=== PATIENT | female | born 1955 | race Caucasian/White ===

== ENCOUNTER 2018-08-09 14:13 | Inpatient (IN) | payer MEDICAID ==
[~2018-08-09 14:13] MED LIST: ATROPINE SULFATE INJ 1 MG/10 ML DISP.SYRIN IV ONE; EPINEPHRINE INJ 1 MG/10 ML DISP.SYRIN ONE; SODIUM BICARBONATE 8.4% INJ 50 MEQ/50 ML DISP.SYRIN ONE
[2018-08-09 14:52] LABS: ABSOLUTE BASOPHILS # (AUTO) 0.1 10^3/uL (0.0-0.2); ABSOLUTE EOSINOPHILS # (AUTO) 0.2 10^3/uL (0.0-0.6); ABSOLUTE LYMPHOCYTES (AUTO) 2.6 10^3/uL (0.5-4.7); ABSOLUTE MONOCYTES (AUTO) 0.8 10^3/uL (0.1-1.4); ABSOLUTE NEUT (AUTO) 5.7 10^3/uL (1.7-8.2); BASOPHILS % (AUTO) 0.6 % (0-2); EOSINOPHILS % (AUTO) 1.8 % (0-6); HEMATOCRIT 43.2 % (36.0-47.0); HEMOGLOBIN 14.8 g/dL (12.0-15.5); LYMPHOCYTES % (AUTO) 28.3 % (13-45); MEAN CORPUSCULAR HEMOGLOBIN 30.4 pg (27.0-33.4); MEAN CORPUSCULAR HGB CONC 34.2 g/dL (32.0-36.0); MEAN CORPUSCULAR VOLUME 89 fl (80-97); MONOCYTES % (AUTO) 8.6 % (3-13); PLATELET COUNT 246 10^3/uL (150-450); RED BLOOD COUNT 4.86 10^6/uL (3.72-5.28); RED CELL DISTRIBUTION WIDTH 13.2 % (11.5-14.0); SEGMENTED NEUTROPHILS % (AUTO) 60.7 % (42-78); TOTAL CELLS COUNTED % (AUTO) 100 %; WHITE BLOOD COUNT 9.3 10^3/uL (4.0-10.5)
[2018-08-09 14:53] LABS: VENOUS BLOOD BASE EXCESS 2.3 mmol/L; VENOUS BLOOD HCO3 31.9 mmol/L (20-32); VENOUS BLOOD PH 7.27 (7.30-7.42)
[2018-08-09 14:54] LABS: VENOUS BLOOD PCO2 71.6 mmHg (35-63)
[2018-08-09 14:59] LABS: INTERNATIONAL RATION (INR) 0.94
[2018-08-09 15:03] LABS: APPEARANCE,URINE SLIGHTLY-CLOUDY; BILIRUBIN,URINE NEGATIVE (NEGATIVE); COLOR,URINE YELLOW; GLUCOSE, URINE NEGATIVE (NEGATIVE); KETONES,URINE NEGATIVE (NEGATIVE); LEUKOCYTE ESTERASE,URINE NEGATIVE (NEGATIVE); NITRITE,URINE NEGATIVE (NEGATIVE); PROTEIN,URINE NEGATIVE (NEGATIVE); URINE SPECIFIC GRAVITY 1.025; UROBILINOGEN,URINE NEGATIVE mg/dL (<2.0)
[2018-08-09] MEDS ORDERED: NALOXONE HCL INJ/PF 0.4 MG/1 ML SDV IV ONE ×2 (15:10→15:20)
--- NOTE | 2018-08-09 15:10 | ER Document Report ---
ED General - General Chief Complaint: Altered Mental Status Stated Complaint: ALTERED MENTAL STATUS Time Seen by Provider: 08/09/18 14:25 - HPI Patient complains to provider of: Altered mental status Notes: Patient came for evaluation of altered mental status. According to EMS patient was found by family early this morning sleeping later throughout the day became difficult to arouse therefore called EMS. Patient has prescriptions for multiple medications that can cause time including hydrocodone Flexeril and lorazepam. According to EMS patient Flexeril bottle was missing 6 tablets. Upon my initial evaluation patient with a GCS of approximately 10. Patient will move all 4 extremities to painful stimuli she also opened her eyes to pain And constant principal sounds. Patient looks to be maintaining her airway respiratory rate is approximately 10-12 SPO2 was otherwise normal. No history of trauma last known well was night prior to arrival. Otherwise the family is currently at bedside A brief review of the patient's medical records available in [facility] was performed - Related Data Allergies/Adverse Reactions: No Known Allergies Allergy (Verified 08/09/18 15:13) Past Medical History - Social History Smoking Status: Unknown if Ever Smoked Family History: Reviewed & Not Pertinent Review of Systems - Review of Systems -: Yes ROS unobtainable due to patient's medical condition - Altered mental status Physical Exam - Vital signs Vitals: Temp 97.4 F 08/09/18 14:15 Interpretation: Hypotensive - General General appearance: Lethargic In distress: Mild - HEENT Head: Normocephalic, Atraumatic Eyes: Normal Pupils: PERRL - Respiratory Respiratory status: No respiratory distress Chest status: Nontender Breath sounds: Normal Chest palpation: Normal - Cardiovascular Rhythm: Regular Heart sounds: Normal auscultation Murmur: No - Abdominal Inspection: Normal Distension: No distension Bowel sounds: Normal Tenderness: Nontender Organomegaly: No organomegaly - Genitourinary External exam: Normal - Back Back: Normal, Nontender - Extremities General upper extremity: Normal inspection, Nontender, Normal color, Normal ROM , Normal temperature General lower extremity: Normal inspection, Nontender, Normal color, Normal ROM , Normal temperature, Normal weight bearing. No: Louise's sign - Neurological Neuro grossly intact: Yes Cognition: Normal Orientation: AAOx4 Foley Coma Scale Eye Opening: To Pain Flash Coma Scale Verbal: Inappropriate Flash Coma Scale Motor: Localizes to Pain Foley Coma Scale Total: 10 Speech: Normal Motor strength normal: LUE, RUE, LLE, RLE Sensory: Normal - Skin Skin Temperature: Warm Skin Moisture: Dry Skin Color: Normal Course - Re-evaluation Re-evalutation: 08/09/18 21:55 Is evaluation concern for possible overdose. Patient did have his CT chest x- ray performed. Upon return from the head CT patient's respirations have decreased to 8 before that time Narcan was given patient received 2 doses of 0.4 with improvement of her respiratory rate from 8-13. Initial laboratory studies did return showing hypercapnia. At this time family was available for further questioning states patient does have history of diabetes hypertension does take anxiety medications L for underlying possible fibromyalgia states patient was normal night prior states that the patient does have a history of losing her son around this time most time does have issues with depression states never has overdosed before. Multiple evaluations after Narcan showed improvement in the patient's GCS able to open her eyes spontaneously to voice follow simple commands moving all 4 extremities. Patient continued on BiPAP Laboratory studies did return showing opiates benzos and marijuana in the patient's system. EKG showed left bundle outpatient has negative troponin at this time. Chest x-ray concerning for left sided pneumonia Levaquin was added onto the anabolic regiment During monitoring the patient she did become tachycardic and significant hypotensive with decreased respirations. No dose of Narcan was given however this time patient did not respond decision made to go ahead and intubate the patient. Intubation was performed allowing placement of a central line. Patient blood pressure continues to not respond to bolusing of fluids therefore Levophed was started continue to be hypotensive therefore Jp-Synephrine was also initiated. Patient underwent a CTA of her chest and CT scan of her abdomen for further evaluation for possible source of infection evaluating the abdominal care for any signs of free fluid believe that the patient was coming all of a sudden sniffily hypertensive. This showed bilateral pneumonia right greater than left on my read with no PE. No signs of any intra-abdominal pathology except for sigmoid diverticulitis. Case was discussed with the hospitalist staff. We will admit the patient for diverticulitis pneumonia and sepsis. Do believe patient more likely overdosed and aspirated. I did consult with poison control recommended continue supportive treatment monitoring of electrolytes repeat EKGs for cardiac status. - Vital Signs Vital signs: Temp Pulse Resp BP Pulse Ox 95.7 F L 21 H 95/80 L 90 L 08/09/18 21:42 08/09/18 20:06 08/09/18 20:06 08/09/18 19:51 - Laboratory Result Diagrams: 08/09/18 13:50 08/09/18 15:28 Laboratory results interpreted by me: 08/09/18 08/09/18 08/09/18 14:28 15:28 15:28 Carbonic Acid ABG pH ABG pCO2 ABG HCO3 ABG Total CO2 VBG pH 7.27 L VBG pCO2 71.6 H* Glucose 138 H POC Glucose AST 58 H Alkaline Phosphatase 138 H Creatine Kinase Salicylates < 1.0 L Acetaminophen < 10 L 08/09/18 08/09/18 08/09/18 15:28 16:50 16:55 Carbonic Acid 1.54 H ABG pH 7.15 L* ABG pCO2 51.3 H ABG HCO3 17.5 L ABG Total CO2 19.0 L VBG pH VBG pCO2 Glucose POC Glucose 186 H AST Alkaline Phosphatase Creatine Kinase 2718 H Salicylates Acetaminophen Procedures - Central Line Right Internal jugular Central line pre-insertion: Sterile PPE donned, Chloraprep applied Central line lumen type: Triple Ultrasound guided: Yes CM at insertion site: 20 Line secured with sutures: Yes Central line post-insertion: Blood return from lumens, Biopatch applied, Sutured , Sterile dressing applied, Position confirmed w/ CXR Complications: No - Intubation Orotracheal Airway evaluation: Normal anatomy Mallampati Classification: Class 2 Medications: Etomidate, Succinylcholine Intubation method: Nasotracheal Blade size: 4 Equipment used: Glidescope ETT size: 8.0 ETT secured at: Teeth ETT secured at (cm): 22 Ventilator settings: SIMV Tidal volume: 500 FiO2: 100 Respirations: 14 Pressure support: 5 PEEP: 10 Post Intubation Xray: Yes Intubation Complications: No complications - Additional Procedures ABG Additional Procedures: ABG - Bedside ultrasound was used to perform ABG. Initially tried on the left radial however this was unsuccessful x2 I did attempt on the right radial with one attempt was able to use ultrasound to guide the art line in the place area was cleaned with alcohol and ChloraPrep suture and Biopatch was also placed no complications Critical Care Note - Critical Care Note Total time excluding time spent on procedures (mins): 86 Comments: Patient with an overdose aspiration pneumonia requiring initial management of BiPAP and then continue to respiratory distress requiring intubation and procedures to be performed. Time excludes all procedures Discharge - Discharge Clinical Impression: Hypotension Qualifiers: Hypotension type: other hypotension type Qualified Code(s): I95.89 - Other hypotension Pneumonia Qualifiers: Pneumonia type: aspiration pneumonia Aspiration pneumonia type: unspecified Laterality: left Drug overdose Qualifiers: Encounter type: initial encounter Injury intent: undetermined intent Qualified Code(s): T50.904A - Poisoning by unspecified drugs, medicaments and biological substances, undetermined, initial encounter Acute respiratory failure Qualifiers: Respiratory failure complication: hypoxia and hypercapnia Qualified Code(s): J96.01 - Acute respiratory failure with hypoxia; J96.02 - Acute respiratory failure with hypercapnia; J96.02 - Acute respiratory failure with hypercapnia; J96.02 - Acute respiratory failure with hypercapnia Diabetes Qualifiers: Diabetes mellitus type: type 1 Diabetes mellitus complication status: without complication Qualified Code(s): E10.9 - Type 1 diabetes mellitus without complications Depression Qualifiers: Depression Type: unspecified Qualified Code(s): F32.9 - Major depressive disorder, single episode, unspecified Altered mental status Qualifiers: Coma timing: unspecified coma timing Bilateral pneumonia Qualifiers: Pneumonia type: aspiration pneumonia Aspiration pneumonia type: due to regurgitated food Condition: Good Disposition: ADMITTED INPATIENT Admitting Provider: [facility] Admitted: ICU
[2018-08-09 15:17] LABS: URINE AMPHETAMINES SCREEN NEGATIVE; URINE BARBITURATES SCREEN NEGATIVE; URINE BENZODIAZEPINES SCREEN UNCONFIRMED POSITIVE; URINE COCAINE SCREEN NEGATIVE; URINE MARIJUANA (THC) SCREEN UNCONFIRMED POSITIVE; URINE METHADONE SCREEN NEGATIVE; URINE PHENCYCLIDINE SCREEN NEGATIVE
[2018-08-09] MEDS ORDERED: NALOXONE HCL INJ/PF 0.4 MG/1 ML SDV ONE (15:20)
[2018-08-09] MEDS ORDERED: SUCCINYLCHOLINE CHLORIDE INJ 200 MG/10 ML VIAL ONE (15:20)
--- NOTE | 2018-08-09 15:21 | RADIOLOGY REPORT (SQ) ---
EXAM DESCRIPTION: CT HEAD WITHOUT COMPLETED DATE/TIME: 08/09/2018 3:13 pm REASON FOR STUDY: ams COMPARISON: None. TECHNIQUE: Axial images acquired through the brain without intravenous contrast. Images reviewed wi th bone, brain and subdural windows. Additional sagittal and coronal reconstructions were generated. Images stored on PACS. All CT scanners at this facility use dose modulation, iterative reconstruction, and/or weight based d osing when appropriate to reduce radiation dose to as low as reasonably achievable (ALARA). [facility]: Dose Right [facility]: CareDose [facility]: Dose Right [facility]: Teradose 4D [facility]: [employer] RADIATION DOSE: CT Rad equipment meets quality standard of care and radiation dose reduction techniq ues were employed. CTDIvol: 53.2 mGy. DLP: 937 mGy-cm. mGy. LIMITATIONS: None. FINDINGS: VENTRICLES: Normal size and contour. CEREBRUM: No masses. No hemorrhage. No midline shift. No evidence for acute infarction. Normal gra y/white matter differentiation. No areas of low density in the white matter. CEREBELLUM: No masses. No hemorrhage. No alteration of density. No evidence for acute infarction. EXTRAAXIAL SPACES: No fluid collections. No masses. ORBITS AND GLOBE: No intra- or extraconal masses. Normal contour of globe without masses. CALVARIUM: No fracture. PARANASAL SINUSES: No fluid or mucosal thickening. SOFT TISSUES: No mass or hematoma. OTHER: No other significant finding. IMPRESSION: NORMAL BRAIN CT WITHOUT CONTRAST. EVIDENCE OF ACUTE STROKE: NO. COMMENT: Quality ID # [id number]: Final reports with documentation of one or more dose reduction techniques (e.g., Automated exposure control, adjustment of the mA and/or kV according to patient size, use of iterative reconstruction technique) TECHNICAL DOCUMENTATION: JOB ID: [id number] [employer]- All Rights Reserved Reading location - IP/workstation name: [email or web address]
--- NOTE | 2018-08-09 15:23 | RADIOLOGY REPORT (SQ) ---
EXAM DESCRIPTION: CHEST SINGLE VIEW COMPLETED DATE/TIME: 08/09/2018 3:16 pm REASON FOR STUDY: cxr COMPARISON: None. EXAM PARAMETERS: NUMBER OF VIEWS: One view. TECHNIQUE: Single frontal radiographic view of the chest acquired. RADIATION DOSE: NA LIMITATIONS: None. FINDINGS: LUNGS AND PLEURA: Segmental airspace disease in the left lower lobe. Small left pleural e ffusion. MEDIASTINUM AND HILAR STRUCTURES: Appropriate for technique. HEART AND VASCULAR STRUCTURES: Cardiomegaly. BONES: No acute findings. HARDWARE: None in the chest. OTHER: No other significant finding. IMPRESSION: Left lower lobe pneumonia. TECHNICAL DOCUMENTATION: JOB ID: [id number] [employer]- All Rights Reserved Reading location - IP/workstation name: [email or web address]
[2018-08-09] MEDS ORDERED: NORMAL SALINE 1000 ML 1,000 ML IV ONE ×2 (15:34→15:35)
[2018-08-09] MEDS ORDERED: LEVOFLOXACIN 500 MG/D5W RTU 500 MG/100 ML RTUPB IV ONE (15:35)
[2018-08-09] MEDS ORDERED: NALOXONE HCL INJ 2 MG/2 ML DISP.SYRIN IV ONE (15:45)
[2018-08-09 15:55] LABS: ALANINE AMINOTRANSFERASE 33 U/L (9-52); ALKALINE PHOSPHATASE 138 U/L (38-126); ANION GAP 7 (5-19); ASPARTATE AMINO TRANSFERASE 58 U/L (14-36); BILIRUBIN,DIRECT 0.2 mg/dL (0.0-0.4); BILIRUBIN,TOTAL 0.8 mg/dL (0.2-1.3); BLOOD UREA NITROGEN 19 mg/dL (7-20); CALCIUM 9.8 mg/dL (8.4-10.2); CARBON DIOXIDE 29 mmol/L (22-30); CHLORIDE 104 mmol/L (98-107); GLUCOSE 138 mg/dL (75-110); POTASSIUM 4.5 mmol/L (3.6-5.0); SODIUM 139.5 mmol/L (137-145); TOTAL PROTEIN 6.9 g/dL (6.3-8.2)
[2018-08-09] MEDS ORDERED: NALOXONE HCL INJ 2 MG/2 ML DISP.SYRIN ONE (16:04)
[2018-08-09] MEDS ORDERED: SUCCINYLCHOLINE CHLORIDE INJ 200 MG/10 ML VIAL IV ONE (16:05)
[2018-08-09] MEDS ORDERED: ETOMIDATE INJ/PF 20 MG/10 ML SDV IV ONE ×2 (16:05→16:11)
[2018-08-09] MEDS ORDERED: NOREPINEPHRINE BITARTRATE INJ/PF 4 MG/4 ML SDV IV ONE ×2 (16:17→20:06)
[2018-08-09 16:28] LABS: ACETAMINOPHEN < 10 ug/mL (10-30); SALICYLATE < 1.0 mg/dL (2.0-20.0)
[2018-08-09] MEDS: DEXTROSE 5%-WATER 250 ML with NOREPINEPHRINE BITARTRATE 4 MG IV PRN ×4 (16:31→21:53)
[2018-08-09] MEDS: NORMAL SALINE 1000 ML 1,000 ML IV PRN ×2 (16:33→17:35)
[2018-08-09 17:14] LABS: ARTERIAL BLOOD BASE EXCESS -11.6 mmol/L; ARTERIAL BLOOD H2CO3 1.54 mmol/L (1.05-1.35); ARTERIAL BLOOD HCO3 17.5 mmol/L (20-24); ARTERIAL BLOOD O2 SATURATION 95.1 % (94-98); ARTERIAL BLOOD PCO2 51.3 mmHg (35-45); ARTERIAL BLOOD PO2 95.9 mmHg (80-100)
[2018-08-09 17:15] LABS: ARTERIAL BLOOD FIO2 100%
[2018-08-09 17:16] LABS: ARTERIAL BLOOD PH 7.15 (7.35-7.45)
[2018-08-09] MEDS ORDERED: PHENYLEPHRINE HCL INJ/PF 10 MG/1 ML SDV ONE ×2 (17:20→20:58)
[2018-08-09] MEDS ORDERED: NORMAL SALINE 1000 ML 1,000 ML IV PRN (17:35)
[2018-08-09] MEDS ORDERED: LEVALBUTEROL HCL NEB 0.63 MG/3 ML AMPUL NEB PRN (17:35)
[2018-08-09] MEDS ORDERED: ONDANSETRON HCL INJ/PF 4 MG/2 ML SDV IV PRN (17:35)
[2018-08-09] MEDS: DEXTROSE 5%-WATER 250 ML with PHENYLEPHRINE HCL 40 MG IV PRN ×4 (17:38→21:51)
--- NOTE | 2018-08-09 17:45 | RADIOLOGY REPORT (SQ) ---
EXAM DESCRIPTION: CHEST SINGLE VIEW COMPLETED DATE/TIME: 08/09/2018 5:32 pm REASON FOR STUDY: Post intubation COMPARISON: Earlier the same day. NUMBER OF VIEWS: One view. TECHNIQUE: Single frontal radiographic image of the chest acquired. LIMITATIONS: None. FINDINGS: LUNGS AND PLEURA: Improved aeration left lower lobe. No pneumothorax. MEDIASTINUM AND HEART: Stable heart size and mediastinal structures. SUPPORT DEVICES: Nasogastric tube extends into the left upper quadrant. Right central line tip overl ies cavoatrial junction. Endotracheal tube tip between thoracic inlet and juanito. BONY STRUCTURES: No acute findings. HARDWARE: None. OTHER: No other significant finding. IMPRESSION: Appropriate position of support apparatus. No pneumothorax. Reading location - IP/workstation name: [email or web address]
[2018-08-09 17:47] LABS: LIPASE 72.8 U/L (23-300)
[2018-08-09] MEDS ORDERED: RINGERS SOLUTION,LACTATED 1,000 ML IV PRN (17:50)
[2018-08-09] MEDS ORDERED: DOBUTAMINE HCL/D5W 500 MG/250 ML RTUINJ IV PRN (17:51)
[2018-08-09] MEDS ORDERED: PHARMACY COMMUNICATION ORDER MC NR (18:00)
[2018-08-09] MEDS ORDERED: ERTAPENEM SODIUM INJ 1 GM VIAL IV SCH (18:00)
[2018-08-09] MEDS ORDERED: INSULIN REG, HUMAN 100 UNIT/ML 3 ML VIAL (PYX) SUBCUT PRN (18:09)
[2018-08-09] MEDS ORDERED: GLUCAGON,HUMAN RECOMB 1 MG INJ IM PRN (18:09)
[2018-08-09] MEDS ORDERED: DEXTROSE 40% GEL 15 GM TUBE PO PRN ×2 (18:09)
[2018-08-09] MEDS ORDERED: DEXTROSE 50%-WATER 25 GM/50 ML DISP.SYRIN IV PRN ×2 (18:09)
--- NOTE | 2018-08-09 18:11 | PDOC H&P ---
History of Present Illness Admission Date/PCP: FORREST MARIA MD Patient complains of: Altered mental status History of Present Illness: GM TREJO is a 63 year old female history of for diabetes mellitus hypertension COPD depression brought to the emergency room when the family is unable to wake her up this morning according to the daughter patient went to bed fine last night patient's tried to wake her up this morning unable to do so so he called his daughter she came to pick her up, she is unsuccessful so EMS was called. His room according to the ER physician patient was in altered mental status around 9 on arrival and in respiratory distress she was placed on BiPAP for hypercapnia and condition started getting deteriorated worsening of the PCO2 70 ahead and intubated the patient. When he gave him the report of the blood pressures reading 150/20. Started on Levophed. CT head was done in the ER negative for acute changes. Chest x-ray done Indicating left lower lobe pneumonia. Discussed the care with the family and the daughter daughter wants everything to be done. 1 of the family member said patient has living will at home. Hopefully we can get that living will. In the meantime will follow the doctor's wishes that he is a full code she wants everything to be done. In the emergency room urine drug screen positive for opiates she was given Narcan. He initially responded then she deteriorated again. Past Medical History Cardiac Medical History: Reports: Hypertension Endocrine Medical History: Reports: Diabetes Mellitus Type 2 Malignancy Medical History: Reports: Skin Cancer Psychiatric Medical History: Reports: Depression Past Surgical History Past Surgical History: Reports: None Social History Smoking Status: Current Every Day Smoker Frequency of Alcohol Use: Occasional Hx Recreational Drug Use: Yes Drugs: Marijuana Family History Parental Family History Reviewed: Yes Children Family History Reviewed: Yes Sibling(s) Family History Reviewed.: Yes Medication/Allergy Allergies/Adverse Reactions: No Known Allergies Allergy (Verified 08/09/18 15:13) Review of Systems Review of Systems: Patient was intubated. Unable to review the systems. Constitutional: PRESENT: as per HPI Ears: PRESENT: as per HPI Nose, Mouth, and Throat: PRESENT: as per HPI Breasts: PRESENT: as per HPI Cardiovascular: PRESENT: as per HPI Respiratory: PRESENT: as per HPI Gastrointestinal: PRESENT: as per HPI Musculoskeletal: PRESENT: as per HPI Integumentary: PRESENT: as per HPI Neurological: PRESENT: as per HPI Psychiatric: PRESENT: as per HPI Endocrine: PRESENT: as per HPI Physical Exam Vital Signs: Temp Pulse Resp BP Pulse Ox 97.4 F 13 97/71 L 94 08/09/18 14:15 08/09/18 15:30 08/09/18 15:30 08/09/18 15:30 Intake & Output 08/08/18 08/09/18 08/10/18 06:59 06:59 06:59 Weight 83.2 kg General appearance: PRESENT: other - Intubated not under sedation because of the low blood pressures. Head exam: PRESENT: atraumatic Eye exam: PRESENT: PERRLA Neck exam: ABSENT: carotid bruit, JVD, lymphadenopathy, thyromegaly Respiratory exam: PRESENT: other - Bilateral transmitted breath sounds. She was intubated. Cardiovascular exam: PRESENT: tachycardia GI/Abdominal exam: PRESENT: normal bowel sounds, soft, tenderness Neurological exam: PRESENT: other - Patient was intubated on she is not responsive. Psychiatric exam: PRESENT: other - Able to do the psychiatric examination. Results Laboratory Results: 08/09/18 13:50 08/09/18 15:28 08/09/18 08/09/18 08/09/18 13:50 14:28 14:28 WBC 9.3 RBC 4.86 Hgb 14.8 Hct 43.2 MCV 89 MCH 30.4 MCHC 34.2 RDW 13.2 Plt Count 246 Seg Neutrophils % 60.7 Lymphocytes % 28.3 Monocytes % 8.6 Eosinophils % 1.8 Basophils % 0.6 Absolute Neutrophils 5.7 Absolute Lymphocytes 2.6 Absolute Monocytes 0.8 Absolute Eosinophils 0.2 Absolute Basophils 0.1 Carbonic Acid HCO3/H2CO3 Ratio ABG pH ABG pCO2 ABG pO2 ABG HCO3 ABG O2 Saturation ABG Base Excess VBG pH 7.27 L VBG pCO2 71.6 H* VBG HCO3 31.9 VBG Base Excess 2.3 FiO2 Sodium Potassium Chloride Carbon Dioxide Anion Gap BUN Creatinine Est GFR ( Amer) Est GFR (Non-Af Amer) Glucose Lactic Acid 1.6 Calcium Magnesium Total Bilirubin AST ALT Alkaline Phosphatase Total Protein Albumin Urine Color Urine Appearance Urine pH Ur Specific [place] Urine Protein Urine Glucose (UA) Urine Ketones Urine Blood Urine Nitrite Ur Leukocyte Esterase Urine WBC (Auto) Urine RBC (Auto) 08/09/18 08/09/18 08/09/18 14:28 15:28 15:28 WBC RBC Hgb Hct MCV MCH MCHC RDW Plt Count Seg Neutrophils % Lymphocytes % Monocytes % Eosinophils % Basophils % Absolute Neutrophils Absolute Lymphocytes Absolute Monocytes Absolute Eosinophils Absolute Basophils Carbonic Acid HCO3/H2CO3 Ratio ABG pH ABG pCO2 ABG pO2 ABG HCO3 ABG O2 Saturation ABG Base Excess VBG pH VBG pCO2 VBG HCO3 VBG Base Excess FiO2 Sodium 139.5 Potassium 4.5 Chloride 104 Carbon Dioxide 29 Anion Gap 7 BUN 19 Creatinine 0.93 Est GFR ( Amer) > 60 Est GFR (Non-Af Amer) > 60 Glucose 138 H Lactic Acid Calcium 9.8 Magnesium 2.0 Total Bilirubin 0.8 AST 58 H ALT 33 Alkaline Phosphatase 138 H Total Protein 6.9 Albumin 4.0 Urine Color YELLOW Urine Appearance SLIGHTLY-CLOUDY Urine pH 5.0 Ur Specific [place] 1.025 Urine Protein NEGATIVE Urine Glucose (UA) NEGATIVE Urine Ketones NEGATIVE Urine Blood NEGATIVE Urine Nitrite NEGATIVE Ur Leukocyte Esterase NEGATIVE Urine WBC (Auto) 2 Urine RBC (Auto) 3 08/09/18 16:55 WBC RBC Hgb Hct MCV MCH MCHC RDW Plt Count Seg Neutrophils % Lymphocytes % Monocytes % Eosinophils % Basophils % Absolute Neutrophils Absolute Lymphocytes Absolute Monocytes Absolute Eosinophils Absolute Basophils Carbonic Acid 1.54 H HCO3/H2CO3 Ratio 11:1 ABG pH 7.15 L* ABG pCO2 51.3 H ABG pO2 95.9 ABG HCO3 17.5 L ABG O2 Saturation 95.1 ABG Base Excess -11.6 VBG pH VBG pCO2 VBG HCO3 VBG Base Excess FiO2 100% Sodium Potassium Chloride Carbon Dioxide Anion Gap BUN Creatinine Est GFR ( Amer) Est GFR (Non-Af Amer) Glucose Lactic Acid Calcium Magnesium Total Bilirubin AST ALT Alkaline Phosphatase Total Protein Albumin Urine Color Urine Appearance Urine pH Ur Specific [place] Urine Protein Urine Glucose (UA) Urine Ketones Urine Blood Urine Nitrite Ur Leukocyte Esterase Urine WBC (Auto) Urine RBC (Auto) 08/09/18 15:28 Troponin I < 0.012 Impressions: Chest X-Ray 08/09/18 14:25 IMPRESSION: Left lower lobe pneumonia. Head CT 08/09/18 14:25 IMPRESSION: NORMAL BRAIN CT WITHOUT CONTRAST. EVIDENCE OF ACUTE STROKE: NO. Assessment & Plan - Diagnosis (1) Acute respiratory failure Qualifiers: Respiratory failure complication: hypoxia and hypercapnia Qualified Code(s) : J96.01 - Acute respiratory failure with hypoxia; J96.02 - Acute respiratory failure with hypercapnia; J96.02 - Acute respiratory failure with hypercapnia; J96.02 - Acute respiratory failure with hypercapnia Is this a current diagnosis for this admission?: Yes Plan: 08/09/2018 status post intubation in the ER secondary to acute respiratory failure. She is going to be in the ICU as inpatient. Because of the low blood pressures that she was not on any sedatives. We will continue the present ventilator settings. Blood cultures pending. Cardiac enzymes were requested. Started on levofloxacin and Invanz. She was on IV fluids normal saline 100 cc/h , started on Levophed and dobutamine as per the protocol. She will be bed rest with NG tube placement and Egan's catheter. Once is stable we do the CT of the chest. Started on IV Solu-Medrol 125 mg every 8 hours. Xopenex nebulizations every 6 as needed was started. Consult was requested. Prognosis is poor condition is critical. (2) Altered mental status Qualifiers: Coma timing: unspecified coma timing Is this a current diagnosis for this admission?: Yes Plan: 08/09/2018 altered mental status may be secondary to drug overdose, acute respiratory failure with hypoxia and hypercapnia.. aspiration pneumonia is a possibility. We are going to do the ABGs twice a day to check the oxygen saturation. The head was negative. Checks were requested and is kept n.p.o.. (3) Hypotension Is this a current diagnosis for this admission?: Yes Plan: 08/09/2018 hypertension may be secondary to sepsis. Latest blood pressure is 65 /35 on Levophed. Started on IV fluids normal saline 100 cc/h and added dobutamine. (4) Pneumonia Qualifiers: Laterality: left Is this a current diagnosis for this admission?: Yes Plan: 08/09/2018-chest x-ray shows left lower lobe pneumonia. Started on levofloxacin and Invanz. Will try to get sputum cultures. Blood cultures and urine cultures are pending. may be patient is aspirated. (5) Diabetes 1.5, managed as type 2 Is this a current diagnosis for this admission?: Yes Plan: 08 09 2018-patient has history of diabetes mellitus. She is going to be n.p.o. I am going to put her on a low-dose of sliding scale. We will check hemoglobin A1c. (6) Drug overdose Is this a current diagnosis for this admission?: Yes Plan: 08/09/2018-Poison control was notified about the possibility of drug overdose. Urine drug screen positive for opiates. The recommendation is supportive measures. - Time Time Spent: Greater than 70 Minutes Critical Time spent with patient: 15-24 minutes Medications reviewed and adjusted accordingly: Yes
[2018-08-09] MEDS ORDERED: ALBUTEROL SULFATE 0.083% NEB 2.5 MG/3 ML AMPUL NEB PRN (18:13)
--- NOTE | 2018-08-09 18:20 | RADIOLOGY REPORT (SQ) ---
EXAM DESCRIPTION: KUB/ABDOMEN (SINGLE VIEW) COMPLETED DATE/TIME: 08/09/2018 6:06 pm REASON FOR STUDY: Check Placement of NG Tube COMPARISON: None. NUMBER OF VIEWS: One view. TECHNIQUE: Supine radiographic image of the upper abdomen acquired. LIMITATIONS: None. FINDINGS: BOWEL GAS PATTERN: No dilated bowel loops at the visualized upper abdomen. There is a mod erate amount of stool within the colon. CALCIFICATIONS: No suspicious calcifications. SOFT TISSUES: No gross mass or suggestion of organomegaly. HARDWARE: An enteric tube terminates at the left upper quadrant with the distal hole at the distal es ophagus. BONES: No acute findings. IMPRESSION: Enteric tube with the distal hole at the distal esophagus, advancement by approximately 7-10 cm recommended. TECHNICAL DOCUMENTATION: JOB ID: [id number] [email or web address]- All Rights Reserved Reading location - IP/workstation name: [email or web address]
[2018-08-09] MEDS ORDERED: METHYLPREDNISOLONE INJ 125 MG/2 ML SDV IV ONE (18:45)
--- NOTE | 2018-08-09 18:45 | RADIOLOGY REPORT (SQ) ---
EXAM DESCRIPTION: CTA CHEST COMPLETED DATE/TIME: 08/09/2018 6:29 pm REASON FOR STUDY: sepsis hypotension COMPARISON: None. TECHNIQUE: CT scan of the chest performed using helical scanning technique with dynamic intravenous contrast injection. Images reviewed with lung, soft tissue and bone windows. Reconstructed coronal and sagittal MPR images reviewed. Additional 3 dimensional post-processing performed to develop Maximal Intensity Projection images ([place] P). All images stored on PACS. All CT scanners at this facility use dose modulation, iterative reconstruction, and/or weight based d osing when appropriate to reduce radiation dose to as low as reasonably achievable (ALARA). [facility]: Dose Right [facility]: CareDose [facility]: Dose Right [facility]: Teradose 4D [facility]: Leostream CONTRAST TYPE AND DOSE: contrast/concentration: Isovue 350.00 mg/ml; Total Contrast Delivered: 76.0 ml; Total Saline Delivered: 110.0 ml Contrast bolus adequate for pulmonary arteries and aorta. RENAL FUNCTION: BUN 19 creatinine 0.9 RADIATION DOSE: CT Rad equipment meets quality standard of care and radiation dose reduction techniq ues were employed. CTDIvol: 28.4 - 34.7 mGy. DLP: 4501 mGy-cm. . LIMITATIONS: None. FINDINGS: LUNGS AND PLEURA: Appropriate position of endotracheal tube. Segmental consolidation supe rior segment right lower lobe. 10 mm nodule right lower lobe. Subsegmental consolidation in the cheryl gula. No large effusions. AORTA AND GREAT VESSELS: No aneurysm. No dissection. HEART: No pericardial effusion. Approximately 4.5 cm fat-density lesion in the right atrium. PULMONARY ARTERIES: No emboli visualized in the main pulmonary arteries or the segmental branches. HILAR AND MEDIASTINAL STRUCTURES: No identified masses or abnormal nodes. HARDWARE: None in the chest. UPPER ABDOMEN: See separate report of the CT of the abdomen. THYROID AND OTHER SOFT TISSUES: No masses. No adenopathy. BONES: Nothing acute. 3D MIPS: Confirm above findings. OTHER: Nasogastric tube. IMPRESSION: 1. No PE. 2. Bilateral pneumonia. 3. Right atrial lipoma. Correlate with echocardiography. COMMENT: Quality ID # 436: Final reports with documentation of one or more dose reduction techniques (e.g., Automated exposure control, adjustment of the mA and/or kV according to patient size, use of iterative reconstruction technique) TECHNICAL DOCUMENTATION: JOB ID: [id number] 0895[employer]- All Rights Reserved Reading location - IP/workstation name: [email or web address]
--- NOTE | 2018-08-09 18:49 | RADIOLOGY REPORT (SQ) ---
EXAM DESCRIPTION: CT ABD/PELVIS WITH IV ONLY COMPLETED DATE/TIME: 08/09/2018 6:29 pm REASON FOR STUDY: sepsis hypotension COMPARISON: None. TECHNIQUE: CT scan of the abdomen and pelvis performed using helical scanning technique with dynamic intravenous contrast injection. No oral contrast. Images reviewed with lung, soft tissue, and bone windows. Reconstructed coronal and sagittal MPR images reviewed. Delayed images for evaluation of the urinary system also acquired. All images stored on PACS. All CT scanners at this facility use dose modulation, iterative reconstruction, and/or weight based d osing when appropriate to reduce radiation dose to as low as reasonably achievable (ALARA). [facility]: Dose Right [facility]: CareDose [facility]: Dose Right [facility]: Teradose 4D [facility]: Smart [employer] CONTRAST TYPE AND DOSE: See separate report RENAL FUNCTION: See separate report. RADIATION DOSE: . LIMITATIONS: None. FINDINGS: LOWER CHEST: See separate report of the CT of the chest. LIVER: Normal size. No masses. No dilated ducts. SPLEEN: Normal size. No focal lesions. PANCREAS: No masses. No significant calcifications. No adjacent inflammation or peripancreatic fluid collections. Pancreatic duct not dilated. GALLBLADDER: No identified stones by CT criteria. No inflammatory changes to suggest cholecystitis. ADRENAL GLANDS: No significant masses or asymmetry. RIGHT KIDNEY AND URETER: No solid masses. No significant calcifications. No hydronephrosis or hyd roureter. LEFT KIDNEY AND URETER: No solid masses. No significant calcifications. No hydronephrosis or hydr oureter. AORTA AND VESSELS: No aneurysm. RETROPERITONEUM: No retroperitoneal adenopathy, hemorrhage or masses. BOWEL AND PERITONEAL CAVITY: Sigmoid diverticulosis. Subtle stranding of the mesenteric fat image 74 . No abscess. No ascites or free air. APPENDIX: Normal. PELVIS: Egan catheter in urinary bladder. ABDOMINAL WALL: No masses. No hernias. BONES: Nothing acute. OTHER: Nasogastric tube in the stomach. IMPRESSION: Sigmoid diverticulitis. TECHNICAL DOCUMENTATION: JOB ID: [id number] Quality ID # [id number]: Final reports with documentation of one or more dose reduction techniques (e.g., Au tomated exposure control, adjustment of the mA and/or kV according to patient size, use of iterative reconstruction technique) 2010 [employer]- All Rights Reserved Reading location - IP/workstation name: [email or web address]
[2018-08-09] MEDS ORDERED: VASOPRESSIN INJ 20 UNIT/1 ML VIAL ONE ×2 (19:35→20:00)
[2018-08-09 21:38] LABS: ARTERIAL BLOOD BASE EXCESS -17.7 mmol/L; ARTERIAL BLOOD FIO2 90%; ARTERIAL BLOOD H2CO3 1.06 mmol/L (1.05-1.35); ARTERIAL BLOOD HCO3 10.8 mmol/L (20-24); ARTERIAL BLOOD O2 SATURATION 98.1 % (94-98); ARTERIAL BLOOD PCO2 35.1 mmHg (35-45); ARTERIAL BLOOD PO2 146.6 mmHg (80-100); ARTERIAL BLOOD TOTAL CO2 11.9 mmol/L (21-25)
[2018-08-09 21:41] LABS: ARTERIAL BLOOD PH 7.11 (7.35-7.45)
[2018-08-09 21:53] LABS: CREATINE KINASE MB 31.1 ng/mL (<4.55)
[2018-08-09 21:59] LABS: TROPONIN I 1.92 ng/mL
[2018-08-09] MEDS ORDERED: PANTOPRAZOLE SODIUM 40 MG VIAL IV SCH (22:00)
[2018-08-09] MEDS ORDERED: DEXTROSE 5%-WATER 250 ML with VASOPRESSIN 100 UNIT IV PRN ×2 (22:29)
[2018-08-10] MEDS ORDERED: METHYLPREDNISOLONE INJ 125 MG/2 ML SDV IV SCH
[2018-08-10] MEDS ORDERED: PHENYLEPHRINE HCL INJ/PF 10 MG/1 ML SDV ONE (00:57)
--- NOTE | 2018-08-10 00:57 | EKG REPORT ---
SEVERITY:- ABNORMAL ECG - SINUS RHYTHM LEFT BUNDLE BRANCH BLOCK : Confirmed by: Heide Shipman MD 10-Aug-2018 00:56:36
--- NOTE | 2018-08-10 00:57 | EKG REPORT ---
SEVERITY:- ABNORMAL ECG - SINUS TACHYCARDIA WITH IRREGULAR RATE 70-139 LEFT BUNDLE BRANCH BLOCK : Confirmed by: Heide Shipman MD 10-Aug-2018 00:56:31
[2018-08-10] MEDS: DEXTROSE 5%-WATER 250 ML with PHENYLEPHRINE HCL 40 MG IV PRN ×2 (01:04)
[2018-08-10] MEDS ORDERED: ATROPINE SULFATE INJ 1 MG/10 ML DISP.SYRIN IV ONE (01:28)
[2018-08-10 01:41] LABS: ARTERIAL BLOOD BASE EXCESS -21.7 mmol/L; ARTERIAL BLOOD FIO2 100%; ARTERIAL BLOOD H2CO3 0.71 mmol/L (1.05-1.35); ARTERIAL BLOOD HCO3 6.8 mmol/L (20-24); ARTERIAL BLOOD O2 SATURATION 96.3 % (94-98); ARTERIAL BLOOD PCO2 23.7 mmHg (35-45); ARTERIAL BLOOD PO2 112.8 mmHg (80-100); ARTERIAL BLOOD TOTAL CO2 7.5 mmol/L (21-25)
[2018-08-10 01:42] LABS: ARTERIAL BLOOD PH 7.07 (7.35-7.45)
[2018-08-10] MEDS ORDERED: EPINEPHRINE INJ 1 MG/10 ML DISP.SYRIN ONE (01:43)
[2018-08-10] MEDS ORDERED: SODIUM BICARBONATE 8.4% INJ 50 MEQ/50 ML DISP.SYRIN ONE ×2 (01:43)
[2018-08-10] MEDS ORDERED: MORPHINE SULFATE 10 MG/ML INJ ONE (02:10)
[2018-08-10 03:35] VITALS: BP 67/34
--- NOTE | 2018-08-10 05:12 | Progress Note ---
Provider Note Provider Note: Critical care note: Critical care start time: 01:15 CODE BLUE: Patient was treated for cardiac arrest with severe with pulseless electrical activity alternating with pulse recovery. Patient was treated utilizing standard ACLS protocol. Chest compressions were performed while medications were being administered. After several doses of IV epinephrine she responded and a pulse was returned however shortly thereafter her pulse was no longer palpable and chest compressions were resumed as was standard ACLS protocol. Arterial blood gases were obtained during the interval when she had a pulse and were returned sometime later showing a pH of 7.07. During this portion of the resuscitation the patient was treated with IV push epinephrine and she was also given 150 mEq of sodium bicarbonate. Earlier she had received 1 mg of atropine. Her pulse again returned and she was started on an epinephrine drip. At this point her family came in to see her and after discussion about continuing the code they chose to discontinue aggressive resuscitative efforts. To this end the patient was continued on the medications that were currently running and the ventilator which she had been on prior to the beginning of the code. Her family had the opportunity to say goodbye to her and sometime later she succumbed. Critical care in time 01:57
[2018-08-10] MEDS ORDERED: LEVOFLOXACIN 750 MG/D5W RTU 750 MG/150 ML RTUPB IV SCH (10:00)
[2018-08-10] MEDS ORDERED: ENOXAPARIN SODIUM INJ 40 MG/0.4 ML DISP.SYRIN SUBCUT SCH (10:00)
--- NOTE | 2018-08-10 18:57 | Death Summary ---
Summary Date : 08/10/18 Time of :: 02:43 Autopsy: No Resuscitation Status: Full Code - Final Diagnosis (1) Acute respiratory failure Is this a current diagnosis for this admission?: Yes (2) Altered mental status Is this a current diagnosis for this admission?: Yes (3) Hypotension Is this a current diagnosis for this admission?: Yes (4) Pneumonia Is this a current diagnosis for this admission?: Yes (5) Diabetes 1.5, managed as type 2 Is this a current diagnosis for this admission?: Yes (6) Drug overdose Is this a current diagnosis for this admission?: Yes Hospital Course:: 08/10/[id number]-old female with multiple medical problems including diabetes mellitus hypertension COPD depression came to the emergency room on 08/09/2018 after the daughter has a difficulty in arousing her. EMS was called she was brought to the emergency room in the emergency room urine drug screen positive for opiates he was given Narcan she perked up a little bit and she was placed on BiPAP all of a sudden sats are started dropping down to become more than unresponsive promptly intubated and started on IV fluids antibiotics and medical consult was called for admission with went ahead and put her in ICU with sepsis protocol thinking she may be aspirated, cardiac workup was requested , and workup for sepsis blood cultures urine cultures sputum culture was sent. At the time of admission I have extensive discussion with the daughter about the poor prognosis and grave condition her mom is in she understood but she wants to be full code and requested me to do everything we can. CT head that was done in the ER is negative for stroke. Potential diagnosis at the time of admission is acute respiratory failure secondary to aspiration pneumonia altered mental status secondary to hypoxic and coagulopathy, sepsis with hypotension, lower lobe pneumonia that was seen in the initial x-ray. The differential diagnosis also included drug overdose and poison control was notified under the recommendation is to continue the supportive measures. Last night code was called after she found to be having pulseless electrical activity alternating with pulse recovery. Standard ACLS protocol was initiated. Chest compression was performed and medications were administrated. Interval ABCs were done. [place] patient's pulse was returned with epinephrine and atropine. Dr. Vasquez has a long discussion with the family at the time about overall patient's condition and poor prognosis they choose to discontinue aggressive restates resuscitation efforts. Patient was pronounced at 02 hours 43 minutes on 08/10/2018. Family decided against autopsy.
== END 2018-08-10 02:43 | disposition left against medical advice (07) | DRG 917 ==
LOC: ER 14:13 → EH 18:12 → ICU 20:24
PROVIDERS: ADMIT Internal Medicine; ATTEND Internal Medicine
PROC: 0BH17EZ Insertion of Endotracheal Airway into Trachea, Via Natural or Artificial Opening (ICD-10-PCS; principal; 2018-08-09)
PROC: 5A1935Z Respiratory Ventilation, Less than 24 Consecutive Hours (ICD-10-PCS; 2018-08-09)
PROC: 05HM33Z Insertion of Infusion Device into Right Internal Jugular Vein, Percutaneous Approach (ICD-10-PCS; 2018-08-09)
DX: T40.601A Poisoning by unspecified narcotics, accidental (unintentional), initial encounter (principal); J96.01 Acute respiratory failure with hypoxia; J96.02 Acute respiratory failure with hypercapnia; J69.0 Pneumonitis due to inhalation of food and vomit; A41.9 Sepsis, unspecified organism; E11.9 Type 2 diabetes mellitus without complications; J44.9 Chronic obstructive pulmonary disease, unspecified; F32.9 Major depressive disorder, single episode, unspecified; I95.9 Hypotension, unspecified; F17.200 Nicotine dependence, unspecified, uncomplicated; I10 Essential (primary) hypertension; Y92.003 Bedroom of unspecified non-institutional (private) residence as the place of occurrence of the external cause
CPT/HCPCS: 36415; 36600; 51702; 70450; 71045; 71275; 74018; 74177; 80053; 80307; 81001; 82550; 82553; 82803; 82962; 83605; 83690; 83735; 84484; 85025; 85610; 87040; 87070; 87086; 87205; 93005; 93010; 94002; 94003; 94660; 96365; 96375; 96376; 99291; 99292; C1751; J0171; J0330; J0461; J1956; J2270; J2310; J2370; J2930; J3490; J7030; J7060; J7120; S0164